=== PATIENT | male | born 1995 | race Hispanic/Latino ===

== ENCOUNTER 2017-04-13 13:53 | Inpatient (IN) | payer SELFPAY ==
[2017-04-13] MEDS ORDERED: SODIUM CHLORIDE 0.9% 1000ML 1,000 ML IVS ONE (14:19)
[2017-04-13] MEDS ORDERED: PROMETHAZINE HCL INJ 12.5 MG in SODIUM CHLORIDE 0.9% 50ML 50 ML IVPB ONE (14:19)
[2017-04-13] MEDS ORDERED: MORPHINE SULFATE INJ 10 MG/ML VIAL IV ONE (14:19)
[2017-04-13] MEDS ORDERED: SODIUM CHLORIDE 0.9% 50ML 50 ML ONE (14:30)
[2017-04-13] MEDS ORDERED: PROMETHAZINE HCL INJ 25 MG/ML VIAL ONE (14:30)
--- NOTE | 2017-04-13 14:52 | ED.PDOC ---
History of Present Illness - General Chief Complaint: General Stated Complaint: SHOULDER PAIN BILATERALLY/LEG PAIN BILATERALLY, FEVER Time Seen by Provider: 04/13/17 14:18 Source: patient Exam Limitations: no limitations - History of Present Illness Timing/Duration: 1 week Severity: moderate Improving Factors: nothing Worsening Factors: movement Associated Symptoms: fever/chills Allergies/Adverse Reactions: Allergies NO KNOWN ALLERGY Allergy (Verified 04/13/17 15:52) Review of Systems - Review of Systems Constitutional: States: chills, fever, malaise, weakness. Denies: diaphoresis EENTM: Denies: blurred vision, ear pain, nose pain, throat pain, mouth pain Respiratory: Denies: cough, short of breath, wheezing Cardiology: Denies: chest pain, edema, palpitations, syncope Gastrointestinal/Abdominal: Denies: abdominal pain, diarrhea, nausea, vomiting Genitourinary: States: other - DARK URINE. Denies: dysuria, frequency Musculoskeletal: States: joint pain, muscle pain. Denies: neck pain Skin: Denies: dryness Neurological: Denies: headache, numbness, paresthesia, tingling, tremors Endocrine: Denies: excessive sweating, increased hunger, increased thirst, increased urine Hematologic/Lymphatic: Denies: anemia, blood clots All other Systems: Reviewed and Negative Past Medical History (General) - Patient Medical History Hx Seizures: No Hx Dementia: No Hx Congestive Heart Failure: No Hx Other - free text: AUTISM Surgical History: no surgical history - Social History Hx Tobacco Use: No Hx Alcohol Use: No Hx Substance Use: No Hx Substance Use Treatment: No Hx Depression: No Feels Threatened In Home Enviroment: No Feels Threatened In a Relationship: No Hx Physical Abuse: No Hx Emotional Abuse: No Hx Suspected Abuse: No - Triage Comment ED Triage Comment: Pt arrived EMS weak and c/o pain. Skin hot to touch. Pt has hx of autism and asbergers. Family Medical History - Family History Mother Living Status: Still Living Physical Exam - Physical Exam General Appearance: Alert, Anxious, Well Developed, Well Groomed, Well Hydrated , Well Nourished Eye Exam: bilateral normal Ears, Nose, Throat: hearing grossly normal, normal pharynx, other - DRY MM Neck: non-tender, full range of motion, supple, normal inspection Respiratory: chest non-tender, lungs clear, normal breath sounds, no respiratory distress, no accessory muscle use, respiratory distress Cardiovascular/Chest: normal peripheral pulses, regular rate, rhythm, no edema, no gallop, no JVD, no murmur Peripheral Pulses: radial,right: 2+, radial,left: 2+ Gastrointestinal/Abdominal: normal bowel sounds, non tender, soft, no organomegaly, no pulsatile mass Extremity: normal range of motion, non-tender, normal inspection, no pedal edema Neurologic: unit supervisor II-XII nml as tested, no motor/sensory deficits, alert, oriented x 3 Skin Exam: normal color, warm/dry Lymphatic: no adenopathy Progress - Progress Progress: 04/13/17 14:53 HERE WITH FEVER, CHILLS, MYALGIAS, DARK URINE, DRY MM. WOULD BE CONCERNED FOR DEHYDRATION, RHABDO, ELECTROLYTE DERANGEMENT, ACUTE KIDNEY INJURY, UNLIKELY PNEUMONIA WITHOUT COUGH/SHORTNESS OF BREATH. 04/13/17 15:48 THERE IS A MARKED LEUKOCYTOSIS WITH BANDEMIA. WILL ADD A LACTATE LEVEL. THE BILIRUBEN IS ELEVATED WILL ADD A LIPASE AND A BILIARY SONOGRAM. 04/13/17 19:26 IS STILL TACHY, FEBRILE, HAS MARKED LEUKOCYTOSIS WITH BANDEMIA. BILIRUBEN IS ELEVATED. WILL PUT ON ABX. CT, UA ARE RELATIVELY UNREMARKABLE. CXR IS UNREMARKABLE. WILL HYDRATE ON IV ABX ON HE OVERNIGHT, IF NOT IMPROVING MAY NEED TRANSFER FOR ID/GI CONSULT. - Results/Orders Results/Orders: 04/13/17 15:53 Hold Metformin x 48Hrs [id number] 04/13/17 16:51 URINE CULTURE W/COLONY COUNT Stat 04/13/17 18:30 Chest,1 View [RAD] Stat Laboratory Results - last 24 hr 04/13/17 04/13/17 04/13/17 14:34 14:34 14:34 WBC 20.6 H* RBC 5.09 Hgb 15.1 Hct 44.0 MCV 86.4 MCH 29.6 MCHC 34.2 RDW 12.9 Plt Count 244 MPV 8.1 Absolute Neuts (auto) 16.80 H Absolute Lymphs (auto) 1.40 Absolute Monos (auto) 2.40 H Absolute Eos (auto) 0.00 Absolute Basos (auto) 0.10 Neutrophils % 81.4 H Neutrophils % (Manual) 81.0 Lymphocytes % 6.5 L Lymphocytes % (Manual) 6.0 Monocytes % 11.8 H Monocytes % (Manual) 0.0 Eosinophils % 0.0 L Basophils % 0.3 Band Neutrophils 13.0 Eosinophils 0.0 Basophils 0.0 Platelet Estimate Normal Sodium 132 L Potassium 3.9 Chloride 98 L Carbon Dioxide 23 Anion Gap 14.9 BUN 17 Creatinine 1.10 BUN/Creatinine Ratio 15.5 Random Glucose 133 H Serum Osmolality 268.0 L Lactic Acid Calcium 9.0 Total Bilirubin 3.2 H* Direct Bilirubin 1.3 H GGT AST 41 ALT 33 Alkaline Phosphatase 51 LD Total Creatine Kinase 157 Serum Total Protein 7.6 Albumin 3.4 Globulin 4.2 H Albumin/Globulin Ratio 0.8 L Lipase Urine Color Urine Appearance Urine pH Ur Specific Converse Urine Protein Urine Glucose (UA) Urine Ketones Urine Blood Urine Nitrite Urine Bilirubin Urine Urobilinogen Ur Leukocyte Esterase Urine RBC Urine WBC Ur Epithelial Cells Amorphous Sediment Urine Bacteria Hyaline Casts Urine Mucus Urine Opiates Screen Urine Barbiturates Ur Phencyclidine Scrn U Amphetamin/Meth Scrn U Benzodiazepines Scrn U Cocaine Metab Screen U Cannabinoids Screen 04/13/17 04/13/17 04/13/17 14:34 14:34 15:47 WBC RBC Hgb Hct MCV MCH MCHC RDW Plt Count MPV Absolute Neuts (auto) Absolute Lymphs (auto) Absolute Monos (auto) Absolute Eos (auto) Absolute Basos (auto) Neutrophils % Neutrophils % (Manual) Lymphocytes % Lymphocytes % (Manual) Monocytes % Monocytes % (Manual) Eosinophils % Basophils % Band Neutrophils Eosinophils Basophils Platelet Estimate Sodium Potassium Chloride Carbon Dioxide Anion Gap BUN Creatinine BUN/Creatinine Ratio Random Glucose Serum Osmolality Lactic Acid Calcium Total Bilirubin Direct Bilirubin GGT 40 AST ALT Alkaline Phosphatase LD Total 230 H Creatine Kinase Serum Total Protein Albumin Globulin Albumin/Globulin Ratio Lipase 24 Urine Color Urine Appearance Urine pH Ur Specific Converse Urine Protein Urine Glucose (UA) Urine Ketones Urine Blood Urine Nitrite Urine Bilirubin Urine Urobilinogen Ur Leukocyte Esterase Urine RBC Urine WBC Ur Epithelial Cells Amorphous Sediment Urine Bacteria Hyaline Casts Urine Mucus Urine Opiates Screen Urine Barbiturates Ur Phencyclidine Scrn U Amphetamin/Meth Scrn U Benzodiazepines Scrn U Cocaine Metab Screen U Cannabinoids Screen 04/13/17 04/13/17 04/13/17 16:00 16:51 18:45 WBC RBC Hgb Hct MCV MCH MCHC RDW Plt Count MPV Absolute Neuts (auto) Absolute Lymphs (auto) Absolute Monos (auto) Absolute Eos (auto) Absolute Basos (auto) Neutrophils % Neutrophils % (Manual) Lymphocytes % Lymphocytes % (Manual) Monocytes % Monocytes % (Manual) Eosinophils % Basophils % Band Neutrophils Eosinophils Basophils Platelet Estimate Sodium Potassium Chloride Carbon Dioxide Anion Gap BUN Creatinine BUN/Creatinine Ratio Random Glucose Serum Osmolality Lactic Acid 1.5 Calcium Total Bilirubin Direct Bilirubin GGT AST ALT Alkaline Phosphatase LD Total Creatine Kinase Serum Total Protein Albumin Globulin Albumin/Globulin Ratio Lipase Urine Color Yellow Urine Appearance Clear Urine pH 6.0 Ur Specific Converse 1.015 Urine Protein 100 H Urine Glucose (UA) Negative Urine Ketones 40 H Urine Blood Trace-intact H Urine Nitrite Positive H Urine Bilirubin Moderate Urine Urobilinogen >= 8.0 H Ur Leukocyte Esterase Negative Urine RBC 0-1 Urine WBC 0 Ur Epithelial Cells 3-5 Amorphous Sediment 1+ Urine Bacteria 0 Hyaline Casts 0-1 Urine Mucus Large Urine Opiates Screen Negative Urine Barbiturates Negative Ur Phencyclidine Scrn Negative U Amphetamin/Meth Scrn Negative U Benzodiazepines Scrn Negative U Cocaine Metab Screen Negative U Cannabinoids Screen Negative Departure - Departure Clinical Impression: Tachycardia, Bandemia, Hyperbilirubinemia, Myalgia Leukocytosis Qualifiers: Leukocytosis type: bandemia Qualified Code(s): D72.825 - Bandemia Fever Qualifiers: Fever type: unspecified Qualified Code(s): R50.9 - Fever, unspecified Clinical Impression: (Ruled Out): Influenza, Jaundice, Mononucleosis syndrome, Gastroenteritis, Meningitis, Streptococcal sore throat, Otitis media, Upper respiratory infection , Urinary tract infection, Pharyngitis Time of Disposition: 19:29 Disposition: Admit Patient Departure Forms: ED Discharge - Pt. Copy, Patient Portal Self Enrollment Decision To Admit - Decistion To Admit Decision to Admit Reason: Admit from ER - LEUKOCYTOSIS, BANDEMIA, HYPERBILIRUBENEMIA, TACHYCARDIA, FEVER Decision to Admit Date: 04/13/17 Decision to Admit Time: 19:27
--- NOTE | 2017-04-13 16:43 | CT ---
CT OF ABDOMEN WITH INTRAVENOUS CONTRAST CLINICAL HISTORY: FEVER, LEUKOCYTOSIS, ELEVATED BILIRUBEN COMPARISON: None TECHNIQUE: Routine CT protocol following intravenous administration of 100 mL Visipaque contrast. Oral contrast was not administered. Injury formations performed in coronal and sagittal planes. Imaging was performed utilizing automated exposure control for dose reduction. FINDINGS: LUNG BASES: Limited visualization demonstrate minimal gravitational atelectasis in dependent portions of both lung bases. ABDOMEN: Small and large bowel loops are normal in caliber without obstruction or obvious inflammation.Appendix is not visualized in available abdominal images. No pneumatosis or intraperitoneal free air is identified. No abscess adjoining visualized bowel loops. Liver, spleen, pancreas, and adrenal glands are unremarkable in appearance. Gallbladder is unremarkable in appearance.No obstructive uropathy nor calcific nephrolithiasis in either kidney. Abdominal aorta, its major mesenteric branches and iliac arteries are patent without aneurysmal dilatation or flow limiting stenosis nor dissection. No concerning mesenteric or retroperitoneal lymphadenopathy. Lumbar spine demonstrate unremarkable alignment without focal injury. IMPRESSION: 1. No bowel obstruction nor perforation nor abscess. Appendix is not visualized 2. No concerning intraperitoneal lymphadenopathy. 3. No aneurysmal dilatation of abdominal aorta. Electronically signed by: Primo Tomlinson MD 04/13/2017 4:42 PM [employer]
[2017-04-13] MEDS ORDERED: cefTRIAXone SODIUM 2 GM in SODIUM CHL 0.9% 100ML MINI-BAG 100 ML IVPB ONE (19:25)
[2017-04-13] MEDS ORDERED: ACETAMINOPHEN 500 MG TAB PO ONE (19:30)
[2017-04-13] MEDS ORDERED: IBUPROFEN 200 MG TAB PO ONE (19:30)
--- NOTE | 2017-04-13 19:40 | RAD ---
EXAM DESCRIPTION: Chest,1 View CLINICAL HISTORY: LEUKOCYTOSIS, HYPERBILIRUBENEMIA COMPARISON: None FINDINGS: Cardiac silhouette is within normal limits. Decreased lung volumes could be secondary to underinflation. There is no focal parenchymal or pleural disease. There is no acute osseous process visualized. IMPRESSION: No evidence of acute cardiopulmonary disease. Electronically signed by: Maxwell Ny MD 04/13/2017 7:39 PM [employer] OPER[employer]
[2017-04-13] MEDS ORDERED: SODIUM CHL 0.9% 100ML MINI-BAG 100 ML IVPB ONE ×2 (20:53→23:13)
--- NOTE | 2017-04-13 21:24 | HP ---
SUPERVISING PHYSICIAN: Yong Thakur MD CHIEF COMPLAINT: Bilateral shoulder pain with fever. HISTORY OF PRESENT ILLNESS: Mr. Espinal is a 21 year-old male patient who lives at home with his parents. He has a history of autism with Asperger's. The patient and family are both poor historians. According to the patient and mother, the patient started having some body aches in the last 24 hours along with some chills that worsened to the point where the mother was concerned and she brought him to the Emergency Department. Initially, in the Emergency Department the patient was showing to be febrile with a temperature of 102.4,. tachycardiac with a rate of 129 but normotensive with blood pressure 117/71, respirations 20, saturation 95% on room air. His initial laboratory studies showed he had a moderate leukocytosis of 20,600 with a left shift and a bandemia with 13% bands. Chemistries showed a hyponatremia with sodium of 132, normal anion gap. Renal function showed to be intact with creatinine of 1.1, glucose 133, calcium normal at 9.0. Liver functions showed an elevated bilirubin that was a total of 3.2 and a direct of 1.3. Liver enzymes including a GGT were all normal along with alkaline phosphatase. He did have an elevated LDH at 230. Lipase was within normal limits. Urinalysis showed 100 of protein with 40 of ketones, trace amount of blood, positive nitrites, greater than 8 urobilinogen. Microscopic showed to be within normal limits. Influenza swab was completed which showed to be negative for A and B. Strep screen was pending at time of admission as well as urine culture. Radiographic studies included abdominal CT initially with contrast and per radiology interpretation there was no bowel obstruction, no peroration or abscess. Appendix was not visualized. His liver, spleen pancreas and adrenal glands were all unremarkable as well as the gallbladder. There was no concern with intraperitoneal lymphadenopathies, no aneurysmal dilations of abdominal aorta. He also had a chest x-ray single view and per radiology interpretation showed no evidence of acute cardiopulmonary disease. Given the patient's fever with leukocytosis and elevated bilirubin with concerns for an infection but no certain source at time of admission, Emergency Room physician requested patient be placed in observation for further monitoring and treatment and evaluation. The patient is now going to be admitted for further evaluation and close monitoring. He was admitted in stable condition. PAST MEDICAL HISTORY: 1. Autism with Asperger's. PAST SURGICAL HISTORY: 1. Tonsillectomy and adenoidectomy. CURRENT MEDICATIONS: None listed at time of admission. ALLERGIES: NO KNOWN DRUG ALLERGIES. FAMILY HISTORY: Unremarkable. SOCIAL HISTORY: The patient is dependent on his parents who he lives with. He has never smoked tobacco, does not use alcohol or illicit drugs. REVIEW OF SYSTEMS: CONSTITUTIONAL: Noted fevers, chills, general malaise, weakness.. HEENT: Denies vision changes, earache, sore throat, nasal congestion. CHEST: Denies any shortness of breath or cough, wheezing. HEART: Denies chest pain, syncopal episodes or palpitations. ABDOMEN: Denies abdominal pain, constipation, nausea, vomiting, diarrhea. . GENITOURINARY: Noted his urine has been darker than normal but denied hematuria or other urinary issues. MUSCULOSKELETAL: As noted in history of present illness. Generalized malaise, muscle pains. Denies neck pain or stiffness. NEUROLOGIC: Denies headache, no paresthesias, tremors. PHYSICAL EXAMINATION: VITAL SIGNS: Temperature initially 102.4 with pulse 129, blood pressure 117/71 , respirations 20, saturation 95% on room air. Admission weight 94.2 kg. GENERAL: At times of admission to medical/surgical floor, the patient appeared to be comfortable and in no acute distress. He was alert, well-developed, well- nourished. HEENT: Tympanic membranes clear bilaterally. Oropharynx pink with dry mucous membranes. Posterior pharynx was without any notable erythema. NECK: Non-tender, supple with full range of motion CHEST: Clear to auscultation bilaterally without any rhonchi, rales, or wheezes. CARDIOVASCULAR: Regular rate and rhythm without appreciable murmurs, rubs, or gallops. Did show tachycardic rhythm on bedside monitor. There was no jugular venous distention noted. ABDOMEN: Soft, non-tender with no rebound tenderness with positive bowel sounds. No peritoneal sign. EXTREMITIES: No cyanosis, clubbing, or edema. NEUROLOGIC: Cranial nerves II through XII grossly intact. Facial features were symmetrical. Extraocular movements were within normal limits. Her was alert to self, family, location and as per his mother, he was at his normal baseline status. LYMPHATICS: There was no notable lymphadenopathy. INTEGUMENT: There were no rashes, sores. He was normal color, warm and dry. LABORATORY: CBC showed a leukocytosis of 20,600, hemoglobin 15.1, hematocrit 44.0. Platelet count 244,000, differential did show a left shift as well as bandemia with 13% bands. ESR was elevated at 20. Chemistries showed a mild hyponatremia at 132 with normal carbon dioxide and anion gap. BUN 17, creatinine 1.10, glucose 133. Lactic acid was normal at 1.5. Bilirubin elevated at 3.2 with elevated direct bilirubin at 1.3. Calcium normal at 9.0. Liver functions including GGT, ALT, AST and alkaline phosphatase all within normal limits. LDH elevated at 230. Creatinine kinase normal at 157. C-reactive protein elevated at 25.6. Albumin normal at 3.4, lipase normal at 24. Urinalysis showed urine to be dark but clear with 100 of protein, 40 of ketones , tract intact blood with positive nitrites and greater than 8 urobilinogen. Microscopic showed to be within normal limits. Urine drug screen was negative for all substances tested. MICROBIOLOGY: Blood cultures were not completed prior to starting antibiotics in the ED. Influenza swabs for A and B were both negative. Urine culture was pending. Sputum culture pending. RADIOLOGY: Again, CT of the abdomen with contrast showed per radiology interpretation no bowel obstruction, no perforation, no abscess. Appendix was not visualized. There was no concerning intraperitoneal lymphadenopathy, no aneurysmal dilations of abdominal aorta. ASSESSMENT: 1. Fever, acute onset with leukocytosis and bandemia with no identified source at time of admission with negative influenza swabs but felt to be more likely a viral etiology pending further culture results of urine and sputum. 2. Elevated bilirubin, elevated LDH with normal liver enzymes, uncertain etiology, possibly secondary to some hemolysis from infectious process and fever with no mention of history of liver disease. 3. History of autism with Asperger's. 4. Electrolytes imbalance with hyponatremia, uncertain etiology possibly secondary to underlying medications for treatment of autism and Asperger's at time of admission what medications with considerations of possible chronic state, possibly acute with patient having no diarrhea or nausea or vomiting. PLAN: The patient is being admitted to the medical/surgical floor for further treatment and evaluation. Given that he has a significant leukocytosis and fever with uncertain etiology, he was given a dose of Rocephin in the Emergency Room. I will follow this up with scheduled Unasyn 3 mg every 6 hours. Await repeat laboratory studies in the morning and further evaluation for possible identification of infectious source. Again, this may be just a viral infection , influenza like infection with a negative flu swab. Will plan to give the patient 2 liters of normal saline and follow this up with D5 normal saline and 20 of potassium over the next 10 to 12 hours. We will assess his laboratory studies in the morning including his CMP to reevaluate his liver function and bilirubin. Should he again show elevation of his bilirubin, certainly we will need to consult with GI specialist as well as Infectious Disease given his questionable infectious etiology and ongoing fevers with elevated C-reactive protein and a sed rate. We will anticipate length of stay to be 2 to 3 days. I will also start him on Tamiflu given concerns for underlying influenza infection. Again, will reevaluate in the morning with repeat labs and reevaluate clinically. Until discharge, we will continue to monitor him closely and treat appropriately. #[id number] [facility]
[2017-04-13] MEDS ORDERED: ONDANSETRON INJ 4 MG/2 ML VIAL IV PRN (21:39)
[2017-04-13] MEDS ORDERED: IV SET AND CAP CHANGE INJ INJ SCH (22:00)
[2017-04-13] MEDS ORDERED: AMPICILLIN & SULBACTAM SODIUM 3 GM VIAL ONE (23:14)
[2017-04-13] MEDS: AMPICILLIN & SULBACTAM SODIUM 3 GM in SODIUM CHL 0.9% 100ML MINI-BAG 100 ML IVPB SCH (23:17)
[2017-04-13] MEDS: OSELTAMIVIR 75 MG CAP PO SCH (23:18)
[2017-04-13] MEDS ORDERED: KETOROLAC TROMETHAMINE INJ 30 MG/ML VIAL IV ONE (23:28)
[2017-04-14] MEDS ORDERED: SODIUM CHL 0.9% 100ML MINI-BAG 100 ML IVPB ONE ×4 (04:03→21:55)
[2017-04-14] MEDS ORDERED: AMPICILLIN & SULBACTAM SODIUM 3 GM VIAL ONE ×4 (04:03→21:55)
[2017-04-14] MEDS: KCL 20MEQ/D5NS 1,000 ML IVS PRN ×2 (04:06→20:02)
[2017-04-14] MEDS: AMPICILLIN & SULBACTAM SODIUM 3 GM in SODIUM CHL 0.9% 100ML MINI-BAG 100 ML IVPB SCH ×4 (04:32→22:58)
[2017-04-14] MEDS ORDERED: cefTRIAXone SODIUM 1 GM VIAL ONE (05:36)
[2017-04-14] MEDS ORDERED: SODIUM CHL 0.9% 50ML MIN-BAG+ 50 ML IVPB ONE (05:36)
--- NOTE | 2017-04-14 07:57 | RAD ---
Procedure: XR CHEST 1 VIEW Exam Date: 04/14/2017 12:00 AM [employer] [employer] Ordering Provider: Robbi Mata NP Clinical Indication: fever unknown etiology Comparison: None Findings: Lungs are clear. Heart size is upper limits of normal. No acute osseous abnormality. Impression: No acute pulmonary process. Electronically signed by: Jenni Willis MD 04/14/2017 7:56 AM [employer]ER
[2017-04-14] MEDS ORDERED: KETOROLAC TROMETHAMINE INJ 30 MG/ML VIAL IV ONE ×2 (08:47→17:20)
[2017-04-14] MEDS ORDERED: cefTRIAXone SODIUM 1 GM in SODIUM CHL 0.9% 50ML MIN-BAG+ 50 ML IVPB SCH (09:00)
[2017-04-14] MEDS: OSELTAMIVIR 75 MG CAP PO SCH ×2 (10:09→21:00)
[2017-04-14] MEDS ORDERED: metroNIDAZOLE IV PREMIX 500MG 100 ML IVPB ONE ×2 (12:25→19:56)
[2017-04-14] MEDS: metroNIDAZOLE IV PREMIX 500MG 500 MG in PREMIX BAG 1 BAG IVPB SCH ×2 (13:06→20:02)
[2017-04-14] MEDS ORDERED: IBUPROFEN 400 MG TAB ONE (16:53)
[2017-04-14] MEDS ORDERED: SODIUM CHLORIDE 0.9% 1000ML 1,000 ML ONE (16:54)
[2017-04-14] MEDS ORDERED: IBUPROFEN 200 MG TAB PO ONE (16:55)
[2017-04-14] MEDS ORDERED: SODIUM CHLORIDE 0.9% 1000ML 1,000 ML IVS ONE (17:13)
[2017-04-14] MEDS ORDERED: ALPRAZolam 0.25 MG TAB PO ONE (17:59)
[2017-04-14] MEDS ORDERED: IBUPROFEN 200 MG TAB PO PRN (18:00)
--- NOTE | 2017-04-14 18:07 | US ---
EXAM DESCRIPTION: Liver CLINICAL HISTORY: Fever, Leukocytosis; elevated TBIL; normal LFTs COMPARISON: None. FINDINGS: Sonography was performed of the right upper quadrant. The appendix was not seen. No sonographic Curry's sign. There is a 7 mm gallbladder polyp. Gallbladder wall is thickened at 3.4 mm. There is increased echogenicity of the liver. Liver span is 16.4 cm. Right kidney measures 10.0 x 5.6 x 6.4 cm. There is no evidence of pericholecystic fluid. No focal hepatic or pancreatic lesion is seen. The right kidney appears normal. Common duct is normal in caliber. IMPRESSION: Gallbladder wall thickening. 7 mm gallbladder polyp. Probable fatty infiltration of the liver. Electronically signed by: Javier Martinez 04/14/2017 6:06 PM [facility]
[2017-04-14] MEDS ORDERED: QUEtiapine FUMARATE 100 MG TAB ONE (19:56)
[2017-04-14] MEDS ORDERED: QUETIAPINE FUMARATE 200 MG PO SCH (21:00)
--- NOTE | 2017-04-14 21:10 | PN ---
DATE: 04/14/17 SUPERVISING PHYSICIAN: Yong Thakur M.D. SUBJECTIVE: The patient continues to run fevers about every 8 to 10 hours. T max so far has been 103.1, pulse remains elevated between 90 and 125. Blood pressure remains stable. Current blood pressure is 100/61, he is satting 95% on room air. He has had no reports of chest pains, nausea, vomiting or diarrhea , or any significant abdominal pain. The patient does complain of generalized body aches more so in the bilateral shoulders. OBJECTIVE: VITAL SIGNS: T max 103.1, pulse 117, blood pressure 100/61, satting 95% on room air. I's and O's show a positive balance of 575 with 1850 in, 1240 out. Weight is 95.1 kg. CHEST: Lungs were clear to auscultation bilaterally. HEART: Regular rate and rhythm but showing to be tachycardic on surveillance system monitor. ABDOMEN: Remains soft with positive bowel sounds. No tenderness noted. No rebound tenderness. EXTREMITIES: No clubbing, cyanosis or edema. INTEGUMENT: There are no rashes or lesions noted. NEUROLOGIC: He is alert to himself and his parents, but again answers questions only in minimum responses, but according to his mother he is at his normal baseline mental status. LABORATORY: White count showed elevation today with a leukocytosis up to 23, 400 from 20,600. Hemoglobin and hematocrit show to be stable at 14.9 and 43.6 with platelet count 257,000. Differential does show a left shift, but significant decrease in bands is down from 13% to 3%. Chemistries showed improved potassium is up to 3.4, sodium 137, carbon dioxide 24, anion gap remains normal, BUN 22, creatinine 1.16, glucose 106. Bilirubin continues to remain elevated but is down from 3.2 to 3.0. All liver functions remain normal. MICROBIOLOGY: Four sets of blood cultures remain negative to date. He had a Strep screen that is negative. Strep culture that was pending. Influenza swabs A and B show to be negative. Urine culture shows no growth at 24 hours. No sputum culture has been collected. RADIOLOGY: Chest x-ray this morning per radiology interpretation of a single view chest shows no acute pulmonary process. Liver ultrasound per radiology interpretation showed gallbladder wall thickening with a 7 mm gallbladder polyp , probable fatty infiltration of the liver. There is no evidence of pericholecystic fluid. No local hepatic or pancreatic lesions. Common bile duct was noted to be of normal caliber. There was no sonographic Curry's sign. ASSESSMENT: 1. Persistent fever with leukocytosis with decrease in bands continued with no identified source since admission with all current studies on the CT and sonogram to be unremarkable with urine culture remaining negative. Consideration for continued source of infection to be viral in nature with continued clinical monitoring warranted due to the persistent fever. The patient will remain on antibiotics to include Flagyl and Unasyn while he continues to have leukocytosis and recurrent fevers as well as antivirals with Tamiflu. 2. Elevated bilirubin with an elevated LDH with normal liver enzymes including a normal GGT with uncertain etiology, possibly secondary to some hemolysis from a viral infection and elevated fever with just noted fatty liver infiltration on ultrasound and a gallbladder polyp, but normal common bile ducts and just mild thickening of the gallbladder wall. 3. History of autism with Asperger's. 4. Electrolyte imbalance with hypokalemia, uncertain etiology with the patient showing improvement with IV therapy as well as mild hyponatremia, again improving with IV therapy possibly secondary to Seroquel. PLAN: At this point, will continue with close monitoring. Treat his fevers with Motrin and Toradol as needed. I have already collected 2 sets of blood cultures with his cyclic fever. Will continue to monitor those as well as await any other culture results that are pending. Given that his exam was essentially negative for concerns for appendicitis and gallbladder findings, should he continue to show elevation of his white count and fever tomorrow, will get a CT of his chest and abdomen and pelvis once again to further rule out any unidentified source of infection. Will plan to repeat his labs in the morning along with a CBC and CMP. He will remain on IV fluids to prevent any further dehydration and treat the underlying hyponatremia and hypokalemia. Will anticipate at least another 24 to 48 hours of hospitalization with parenteral antibiotics and close monitoring. Again, will plan to reevaluate in the morning and should his leukocytosis increase, once again address more in detail further sources of infection. Until then, continue to monitor and treat appropriately. #[id number] [facility]
[2017-04-14] MEDS: SODIUM CHLORIDE 0.9% (FLUSH) 10 ML SYG IV PRN (22:57)
[2017-04-15] MEDS ORDERED: ALPRAZolam 0.5 MG TAB PO ONE (01:58)
[2017-04-15] MEDS ORDERED: metroNIDAZOLE IV PREMIX 500MG 100 ML IVPB ONE ×2 (03:44→11:45)
[2017-04-15] MEDS ORDERED: AMPICILLIN & SULBACTAM SODIUM 3 GM VIAL ONE (03:44)
[2017-04-15] MEDS ORDERED: SODIUM CHL 0.9% 100ML MINI-BAG 100 ML IVPB ONE (03:44)
[2017-04-15] MEDS: metroNIDAZOLE IV PREMIX 500MG 500 MG in PREMIX BAG 1 BAG IVPB SCH ×2 (03:52→11:48)
[2017-04-15] MEDS: AMPICILLIN & SULBACTAM SODIUM 3 GM in SODIUM CHL 0.9% 100ML MINI-BAG 100 ML IVPB SCH (05:03)
[2017-04-15] MEDS: SODIUM CHLORIDE 0.9% (FLUSH) 10 ML SYG IV PRN (05:04)
[2017-04-15] MEDS: KCL 20MEQ/D5NS 1,000 ML IVS PRN (05:05)
[2017-04-15] MEDS ORDERED: MEROPENEM 1 GM in SODIUM CHL 0.9% 50ML MIN-BAG+ 50 ML IVPB SCH (09:00)
[2017-04-15] MEDS ORDERED: SODIUM CHL 0.9% 50ML MIN-BAG+ 50 ML IVPB ONE (09:54)
[2017-04-15] MEDS ORDERED: MEROPENEM 1 GM VIAL IVPB ONE (09:54)
[2017-04-15] MEDS: OSELTAMIVIR 75 MG CAP PO SCH (10:10)
[2017-04-15 10:22] VITALS: O2SAT 91
[2017-04-15] MEDS ORDERED: ALPRAZolam 0.25 MG TAB ONE (11:42)
[2017-04-15] MEDS ORDERED: ALPRAZolam 0.25 MG TAB PO ONE (11:42)
[2017-04-15 12:17] VITALS: BP 107/64; TEMP 101.9
--- NOTE | 2017-04-23 09:00 | DS ---
SUPERVISING PHYSICIAN: Yong Thakur MD DISCHARGE DIAGNOSIS: 1. Persistent fever with leukocytosis with bandemia with no identified source of infection since admission with CT, abdominal sonogram and urine cultures remaining negative. Consideration for continued source of infection to be viral in nature with continued clinical monitoring warranted due to the persistent fever. The patient will remain on antibiotics to include Flagyl and Unasyn as well as Tamiflu, requiring transfer due to worsening leukocytosis and clinical condition indicating ongoing severe sepsis, failing to respond to current treatment plan. 2. Elevated bilirubin with an elevated LDH with normal liver enzymes including a normal GGT with uncertain etiology, questionable hemolysis from a viral infection and elevated fever with noted fatty liver infiltration on ultrasound and a gallbladder polyp, but normal common bile duct and mild thickening of the gallbladder wall requiring further management and higher level of care with the patient failing to respond to current treatment plan. 3. History of autism with Asperger's. 4. Electrolyte imbalance with hypokalemia, uncertain etiology with some slight improvement hyponatremia. 5. Acute renal failure secondary to underlying sepsis process, uncertain etiology, requiring transfer for higher level of care and further management with nephrology and infectious disease. REASON FOR HOSPITALIZATION: Mr. Espinal is a 21 year-old male patient who lives at home with his parents. He has a history of autism with Asperger' s. The patient and family are both poor historians. According to the patient and mother, the patient started having some body aches in the last 24 hours prior to admission along with some chills that worsened to the point where the mother was concerned and she brought him to the Emergency Department. Initially , in the Emergency Department the patient was showing to be febrile with a temperature of 102.4,. tachycardiac with a rate of 129 but normotensive with blood pressure 117/71, saturation 95% on room air. His initial laboratory studies showed he had a moderate leukocytosis of 20,600 with a left shift and a bandemia. Chemistries showed a hyponatremia. Renal function initially showed to be intact with creatinine of 1.1. Liver functions showed an elevated bilirubin that was a total of 3.2 and a direct of 1.3. Liver enzymes were within normal limits except for LDH at 230. Pancreatic enzymes were also within normal limits. Urinalysis showed 100 of protein with 40 of ketones, trace amount of blood, positive nitrites, greater than 8 urobilinogen felt to be secondary to high levels of bilirubin. Microscopic showed to be within normal limits. Influenza swab was completed which showed to be negative for A and B. Strep screen was completed at time of admission and was negative. Urine culture and blood cultures were completed. Initial radiographic imaging in the Emergency Room included abdominal CT initially with contrast and per radiology interpretation there was no bowel obstruction, no peroration or abscess. Appendix was not visualized. His liver, spleen pancreas and adrenal glands were all unremarkable as well as the gallbladder. There was no concern with intraperitoneal lymphadenopathies, no aneurysmal dilations of abdominal aorta. He also had a chest x-ray single view and per radiology interpretation showed no evidence of acute cardiopulmonary disease. Given the patient's fever with leukocytosis and elevated bilirubin with concerns for an infection but no certain source at time of admission, Emergency Room physician requested patient be placed in observation for further monitoring and treatment and evaluation. The patient was admitted to the Medical/Surgical Floor in stable condition. LABORATORY: Initial white count was 20,600. At time of discharge, it had gone up to 26,600 despite aggressive antibiotic therapy. Hemoglobin stabilized at 13.6 and hematocrit 40.0. Platelet count 256,000. Differential did show a left shift with bandemia of 13% initially on admission and persisted at 4% prior to transfer. Chemistries on admission showed sodium 132, potassium 3.9, creatinine 1.17, calcium 9.0, bilirubin 3.2, direct bilirubin 1.38. AST, ALT, alkaline phosphatase, GGT were all within normal limits. LDH was elevated at 230. Creatinine kinase was 157. C-reactive protein was 25.6. Lipase was normal at 24. Urinalysis showed microscopic to be within normal limits, but chemical interference due to bilirubin, it was repeated and essentially unchanged. Toxicology screen was negative for all substances tested on urine. Group A strep screen was negative. MICROBIOLOGY: He had four sets of blood cultures that remained negative after five days. His group B strep culture was negative at 48 hours. Influenza A and B was negative. Urine culture at 48 hours was negative. RADIOLOGY: Abdominal CT in the emergency department with contrast per radiologic interpretation showed no bowel obstruction, perforation or abscess. Appendix was not visualized. There was no concerning intraperitoneal adenopathies, no aneurysmal dilation of the abdominal aorta. Chest x-ray, single-view, per radiologic interpretation in the Emergency Room showed no acute cardiopulmonary disease. After admission, he had an ultrasound of the liver, gallbladder and pancreas. The gallbladder per radiologic interpretation showed no sonographic Curry sign, there was a 7 mm gallbladder polyp. The gallbladder wall was thickened at 3.4. The appendix was not seen. The common bile duct was of normal caliber. Please see that final result for full details. He had additional chest x-ray after admission and per radiologic interpretation showed no acute pulmonary process. HOSPITAL COURSE: Mr. Espinal was admitted from the Emergency Room for initiation of treatment his fever, concerns for sepsis and uncertain etiology of infection. He was started on Tamiflu initially with parenteral antibiotic to include Rocephin and Unasyn. The patient continued to show significant fevers up to a maximum of 102.7. Multiple blood cultures were completed. He remained tachycardic, but hemodynamically stable. He was maintaining O2 saturation of 92 % to 94% on room air. He was having good urine output, but showed continued worsening of his laboratory studies including increasing leukocytosis, worsening renal function and persistent elevated bilirubin. Despite cultures, multiple radiographic studies, no source of infectious process was identified. Given the degree of his worsening renal function with final BUN and creatinine elevated at BUN 30, creatinine 2.44, persistent bilirubin despite no evidence of gallbladder disease to significantly result in the patient's symptoms, the patient was transitioned in addition to antibiotic coverage with Unasyn and ceftriaxone, Flagyl and meropenem were added. It was felt that the patient was clinically persistently declining although remaining stable. Therefore, through discussion with family, arrangements were made to have the patient transferred to a higher level of care for further evaluation by regroover, infectious disease and internal medicine. PLAN: The patient was transferred to [facility] on 04/15/17 for hospital services at a higher level of care to include nephrology and infectious disease. The patient was transferred via ground ambulance. All his antibiotics were continued until admitted to [facility] along with fluid management. He was discharged in guarded, but stable condition. #[id number] [facility]
== END 2017-04-15 12:15 | disposition short-term general hospital (02) | DRG 872 ==
LOC: ER 13:53 → MS 21:22 → OBSVTOIN 21:22
PROVIDERS: ADMIT Nurse Practitioner Family; ATTEND Nurse Practitioner Family
PROC: BW20YZZ Computerized Tomography (CT Scan) of Abdomen using Other Contrast (ICD-10-PCS; principal; 2017-04-13)
DX: A41.9 Sepsis, unspecified organism (principal); F84.5 Asperger's syndrome; E87.1 Hypo-osmolality and hyponatremia; N17.9 Acute kidney failure, unspecified; B34.9 Viral infection, unspecified; R65.20 Severe sepsis without septic shock; E80.6 Other disorders of bilirubin metabolism; E87.6 Hypokalemia; M25.512 Pain in left shoulder; M25.511 Pain in right shoulder; M79.1 Myalgia